=== PATIENT | male | born 1980 | race African-American/Black ===

== ENCOUNTER 2018-03-24 16:51 | Emergency (ER) | payer SELFPAY | END 2018-03-24 17:49 | disposition home or self-care (01) | LOC: ERS 16:51 | DX: J01.90 Acute sinusitis, unspecified (principal) | CPT/HCPCS: 99283 ==

== ENCOUNTER 2019-07-24 15:20 | Emergency (ER) | payer OTHER, SELFPAY ==
--- NOTE | 2019-07-24 16:14 | RAD ---
Exam: Chest one view HISTORY:Chest pain Comparison: None FINDINGS: Cardiac silhouette: Normal Aorta: Unremarkable Pulmonary vessels: Normal Costophrenic angles: Clear LUNGS: Scattered interstitial and alveolar opacities, predominantly in the left hemithorax. Pneumothorax: None Osseous abnormalities: None IMPRESSION: Scattered interstitial and alveolar opacities, predominantly in the left hemithorax.
[2019-07-25 11:31] LABS: SARS-CoV-2 MS2 Positive; SARS-CoV-2 N Gene Negative; SARS-CoV-2 S Gene Negative; SARS-CoV-2 orf1ab Negative
--- NOTE | 2019-07-25 14:33 | EKG ---
Test Reason : Blood Pressure : / mmHG Vent. Rate : 076 BPM Atrial Rate : 076 BPM P-R Int : 186 ms QRS Dur : 090 ms QT Int : 362 ms P-R-T Axes : 034 005 008 degrees QTc Int : 407 ms Normal sinus rhythm Normal ECG Confirmed by NICKI MACE MD ([id number]), editor sound DEBORAH HENRY ([id number]) on 07/25/2019 2:33:10 PM Referred By: Confirmed By:NICKI MACE MD
== END 2019-07-24 16:55 | disposition home or self-care (01) ==
LOC: ERS 15:20
DX: J18.9 Pneumonia, unspecified organism (principal); Z20.828 Contact with and (suspected) exposure to other viral communicable diseases
CPT/HCPCS: 71045; 87635; 93005; U0003

== ENCOUNTER 2024-12-02 11:45 | Emergency (ER) | payer SELFPAY ==
[2024-12-02] MEDS ORDERED: Ibuprofen 800 MG TAB ONE (11:56)
[2024-12-02] MEDS ORDERED: Dexamethasone 10 MG/ML VIAL ONE (12:29)
== END 2024-12-02 13:07 | disposition home or self-care (01) ==
LOC: ERS 11:45
DX: J02.9 Acute pharyngitis, unspecified (principal)
CPT/HCPCS: 87081; 87426; 87430; J1100